=== PATIENT | male | born 1965 | race Caucasian/White ===

== ENCOUNTER 2017-11-11 15:50 | Inpatient (IN) | payer BC ==
[~2017-11-11] VITALS: Ht 182.9 cm; Wt 80.3 kg
[2017-11-11 16:53] LABS: HEMATOCRIT 26.3 % (38.0-50.0); HEMOGLOBIN 9.4 G/DL (12.5-16.6); MCHC 35.7 G/DL (30.0-36.0); MCV 109.1 FL (86-99); PLATELET COUNT 298 K/uL (156-360); RBC DIS.WIDTH-CV 15.2 % (11.8-14.6); RBC DIS.WIDTH-SD 60.1 % (39-53); RED BLOOD COUNT 2.41 M/uL (4.00-5.50); WHITE BLOOD COUNT 11.5 K/uL (4.1-10.2)
[2017-11-11 16:54] LABS: APPEARANCE CLEAR ((CLEAR)); BILIRUBIN MODERATE; BLOOD NEGATIVE; COLOR AMBER ((YELLOW)); GLUCOSE (STRIP) NEGATIVE; KETONES NEGATIVE; LEUKOCYTES NEGATIVE; NITRITE NEGATIVE; PROTEIN (STRIP) 100; SPECIFIC GRAVITY 1.028 (1.000-1.030)
[2017-11-11 16:55] LABS: ICTOTEST ND
[2017-11-11 17:00] LABS: BACTERIA NONE SEEN /HPF; EPITHELIAL CELLS RARE /HPF; HYALINE CASTS 0-5 /LPF; MUCUS 1+ /LPF; RED BLOOD CELLS 0-5 /HPF (0-5)
[2017-11-11 17:03] LABS: CHLORIDE 98 mEq/L (99-109); POTASSIUM 2.7 mEq/L (3.7-5.4); SODIUM 139 mEq/L (136-147)
[2017-11-11 17:05] LABS: GLUCOSE 112 mg/dL (70-99)
[2017-11-11 17:06] LABS: TOTAL PROTEIN 7.5 g/dL (6.4-8.3)
[2017-11-11 17:07] LABS: TOTAL BILIRUBIN 5.3 mg/dL (0.0-1.0)
[2017-11-11 17:09] LABS: ALKALINE PHOSPHATASE 292 IU/L (3-129); CREATININE 0.7 mg/dL (0.6-1.3); GFR ESTIMATE (CALCULATED) > 59 mL/min/ (58.99-99999)
[2017-11-11 17:10] LABS: UREA NITROGEN (BUN) 11 mg/dL (9-23)
[2017-11-11 17:11] LABS: AST (GOT) 99 IU/L (2-34)
[2017-11-11 17:12] LABS: ALT (GPT) 26 IU/L (3-49)
[2017-11-11 18:08] LABS: INTER. NORMALIZED RATIO 1.5
[2017-11-11 18:10] LABS: PTT 27.1 SEC (25-37)
[2017-11-11 23:10] VITALS: BP 138/81
[2017-11-12 04:20] VITALS: BP 118/79
[2017-11-12 06:13] LABS: ABSOLUTE RETICULOCYTE CT. 0.12 M/uL (0.02-0.08); HEMATOCRIT 23.4 % (38.0-50.0); HEMOGLOBIN 8.1 G/DL (12.5-16.6); IMM.RETIC FRACTION 24.8 % (3-19); MCH 38.8 PG (29.0-34.0); MCHC 34.6 G/DL (30.0-36.0); PLATELET COUNT 222 K/uL (156-360); RBC DIS.WIDTH-CV 15.7 % (11.8-14.6); RBC DIS.WIDTH-SD 63.5 % (39-53); RED BLOOD COUNT 2.09 M/uL (4.00-5.50); RETIC HGB EQUIVALENT 42.1 (28-36); RETICULOCYTE COUNT 5.8 % (0.5-1.8); WHITE BLOOD COUNT 8.5 K/uL (4.1-10.2)
[2017-11-12 06:34] LABS: CHLORIDE 104 MEQ/L (99-109); CREATININE 0.6 MG/DL (0.6-1.3); GFR ESTIMATE (CALCULATED) > 59 mL/min/ (58.99-99999); GLUCOSE 102 mg/dL (70-99); IRON 102 MCG/DL (35-150); SODIUM 141 MEQ/L (136-147); TRANSFERRIN (TIBC) 117.9 mg/dL (215-380); UREA NITROGEN (BUN) 11 mg/dL (9-23)
[2017-11-12 06:45] LABS: POTASSIUM 3.7 MEQ/L (3.7-5.4); TRANSFERRIN SATUR. 87 % (20-55)
[2017-11-12 07:58] VITALS: BP 125/81
[2017-11-12 08:53] LABS: FOLIC ACID (FOLATE) 4.9 NG/ML (5.0-22.0)
[2017-11-12 11:32] VITALS: BP 122/79
[2017-11-12 15:27] VITALS: BP 117/76
[2017-11-12 19:52] VITALS: BP 145/86
[2017-11-12 21:32] LABS: STOOL OCCULT BLD 1ST SPECIMEN NEGATIVE
[2017-11-12 23:24] VITALS: BP 143/90
[2017-11-13 04:02] VITALS: BP 121/79
[2017-11-13 05:59] LABS: BASOPHIL (%) 0.4 % (0-1); EOSINOPHIL COUNT 0.1 K/uL (0-0.3); HEMATOCRIT 23.3 % (38.0-50.0); HEMOGLOBIN 7.9 G/DL (12.5-16.6); IMMATURE GRANULOCYTE (%) 0.6 % (0.0-0.7); LYMPHOCYTE (%) 11.1 % (15-42); LYMPHOCYTE COUNT 0.9 K/uL (1.0-2.8); MCH 38.7 PG (29.0-34.0); MCHC 33.9 G/DL (30.0-36.0); MCV 114.2 FL (86-99); MONOCYTE (%) 7.4 % (3-12); MONOCYTE COUNT 0.6 K/uL (0-0.8); NEUTROPHIL (%) 79.5 % (45-76); NEUTROPHIL COUNT 6.5 K/uL (1.8-6.4); PLATELET COUNT 230 K/uL (156-360); RBC DIS.WIDTH-CV 15.8 % (11.8-14.6); RBC DIS.WIDTH-SD 65.9 % (39-53); RED BLOOD COUNT 2.04 M/uL (4.00-5.50); WHITE BLOOD COUNT 8.1 K/uL (4.1-10.2)
[2017-11-13 06:49] LABS: A/G RATIO 1.5 (1.1-1.8); ALKALINE PHOSPHATASE 216 IU/L (3-129); ALT (GPT) 17 IU/L (3-49); AST (GOT) 75 IU/L (2-34); CHLORIDE 104 MEQ/L (99-109); CREATININE 0.5 MG/DL (0.6-1.3); GFR ESTIMATE (CALCULATED) > 59 mL/min/ (58.99-99999); GLUCOSE 96 mg/dL (70-99); POTASSIUM 3.3 MEQ/L (3.7-5.4); SODIUM 139 MEQ/L (136-147); TOTAL BILIRUBIN 5.6 MG/DL (0.0-1.0); UREA NITROGEN (BUN) 10 mg/dL (9-23)
[2017-11-13 06:51] LABS: MAGNESIUM 0.9 mg/dl (1.3-2.7)
[2017-11-13 08:46] VITALS: BP 118/85
[2017-11-13 09:13] LABS: FERRITIN 598 NG/ML (22-322)
[2017-11-13 12:21] LABS: HEPATITIS B SURFACE ANTIBODY Nonreactive
[2017-11-13 12:22] LABS: ANTI-HEPATITIS A VIRUS (IGM) Nonreactive
[2017-11-13 12:24] LABS: ANTI-HEPATITIS B CORE (IGM) Nonreactive
[2017-11-13 12:31] VITALS: BP 125/85
[2017-11-13 12:38] LABS: PHOSPHORUS 2.7 mg/dL (2.5-4.9)
[2017-11-13] MEDS ORDERED: NICOTINE PATCH1 EAC2 TD (15:00)
[2017-11-13] MEDS ORDERED: MAG-OXIDE400 MG PO (15:01)
[2017-11-13] MEDS ORDERED: PANTOPRAZOLE SO40 MG PO (15:01)
[2017-11-13] MEDS ORDERED: FOLIC ACID1 MG PO (15:02)
[2017-11-13] MEDS ORDERED: Thiamine,Vitamin B1 PO (15:02)
[2017-11-13] MEDS ORDERED: THERAGRAN1 TABLET PO (15:02)
[2017-11-13 16:06] VITALS: BP 113/76
[2017-11-13 19:49] VITALS: BP 127/80
[2017-11-13 20:16] LABS: BASOPHIL (%) 0.3 % (0-1); EOSINOPHIL (%) 0.7 % (0-5); EOSINOPHIL COUNT 0.1 K/uL (0-0.3); HEMATOCRIT 24.7 % (38.0-50.0); HEMOGLOBIN 8.2 G/DL (12.5-16.6); IMMATURE GRANULOCYTE (%) 0.6 % (0.0-0.7); LYMPHOCYTE (%) 10.8 % (15-42); MCH 38.3 PG (29.0-34.0); MCHC 33.2 G/DL (30.0-36.0); MCV 115.4 FL (86-99); MONOCYTE (%) 6.8 % (3-12); MONOCYTE COUNT 0.7 K/uL (0-0.8); NEUTROPHIL (%) 80.8 % (45-76); NEUTROPHIL COUNT 7.8 K/uL (1.8-6.4); PLATELET COUNT 238 K/uL (156-360); RBC DIS.WIDTH-CV 16.2 % (11.8-14.6); RBC DIS.WIDTH-SD 68.6 % (39-53); RED BLOOD COUNT 2.14 M/uL (4.00-5.50); WHITE BLOOD COUNT 9.7 K/uL (4.1-10.2)
[2017-11-14 00:35] VITALS: BP 125/76
[2017-11-14 05:10] VITALS: BP 122/78
[2017-11-14 06:21] LABS: BASOPHIL (%) 0.3 % (0-1); EOSINOPHIL (%) 1.7 % (0-5); EOSINOPHIL COUNT 0.2 K/uL (0-0.3); HEMATOCRIT 23.6 % (38.0-50.0); HEMOGLOBIN 7.9 G/DL (12.5-16.6); IMMATURE GRANULOCYTE (%) 0.4 % (0.0-0.7); LYMPHOCYTE (%) 11.9 % (15-42); LYMPHOCYTE COUNT 1.1 K/uL (1.0-2.8); MCH 38.5 PG (29.0-34.0); MCHC 33.5 G/DL (30.0-36.0); MCV 115.1 FL (86-99); MONOCYTE (%) 6.7 % (3-12); MONOCYTE COUNT 0.6 K/uL (0-0.8); PLATELET COUNT 239 K/uL (156-360); RBC DIS.WIDTH-CV 15.8 % (11.8-14.6); RBC DIS.WIDTH-SD 67.1 % (39-53); RED BLOOD COUNT 2.05 M/uL (4.00-5.50); WHITE BLOOD COUNT 8.9 K/uL (4.1-10.2)
[2017-11-14 06:29] LABS: INTER. NORMALIZED RATIO 1.6
[2017-11-14 06:44] LABS: ALBUMIN 2.7 G/DL (3.2-4.8); ALKALINE PHOSPHATASE 193 IU/L (3-129); ALT (GPT) 18 IU/L (3-49); AST (GOT) 75 IU/L (2-34); CHLORIDE 104 MEQ/L (99-109); CREATININE 0.5 MG/DL (0.6-1.3); GFR ESTIMATE (CALCULATED) > 59 mL/min/ (58.99-99999); GLUCOSE 98 mg/dL (70-99); MAGNESIUM 1.4 mg/dl (1.3-2.7); POTASSIUM 3.5 MEQ/L (3.7-5.4); SODIUM 138 MEQ/L (136-147); TOTAL PROTEIN 4.9 G/DL (6.4-8.3); UREA NITROGEN (BUN) 10 mg/dL (9-23)
[2017-11-14 11:32] VITALS: BP 118/82
[2017-11-14 12:07] LABS: HEPATITIS B SURFACE ANTIGEN Nonreactive
[2017-11-14 12:08] LABS: HEPATITIS C ANTIBODY Nonreactive
[2017-11-14] MEDS ORDERED: CHLORDIAZEPOXID25 MG PO (12:16)
[2017-11-14] MEDS ORDERED: ALDACTONE25 MG PO (12:25)
[2017-11-15 12:33] LABS: MITOCHONDRIAL (M2) ANTIBODIES+ <=20.0 U (<=20.0)
[2017-11-16 14:28] LABS: ALBUMIN 2.68 G/DL (3.6-4.9); ALPHA-1 GLOBULIN 0.34 G/DL (0.15-0.40); ALPHA-2 GLOBULIN 0.66 G/DL (0.45-0.85); BETA-GLOBULIN 0.64 G/DL (0.65-1.15); GAMMA-GLOBULIN 0.69 G/DL (0.60-1.35)
== END 2017-11-14 15:36 | disposition home or self-care (01) | DRG 433 ==
LOC: EME 15:50 → ENRESERV 20:32 → 3EAST 21:17 → EDOF 21:17 → CANRESERV 21:19 → ENRESERV 21:19 → 3EAST 23:17
PROVIDERS: Hospitalist; Physician Assistant; Specialist
DX: K70.40 Alcoholic hepatic failure without coma (principal); I10 Essential (primary) hypertension; R79.89 Other specified abnormal findings of blood chemistry; E87.6 Hypokalemia; R18.8 Other ascites; M79.89 Other specified soft tissue disorders; F17.210 Nicotine dependence, cigarettes, uncomplicated; E78.5 Hyperlipidemia, unspecified; K76.0 Fatty (change of) liver, not elsewhere classified; R63.4 Abnormal weight loss; R63.0 Anorexia; D53.9 Nutritional anemia, unspecified; F10.239 Alcohol dependence with withdrawal, unspecified; E83.42 Hypomagnesemia; D18.03 Hemangioma of intra-abdominal structures; I08.2 Rheumatic disorders of both aortic and tricuspid valves
CPT/HCPCS: 70140; 71046; 74177; 74183; 80048; 80053; 81003; 81256 90; 82140; 82272; 82390; 82607; 82728; 82746; 83540; 83605; 83735; 84100; 84165; 84466; 85025; 85025 91; 85027; 85046; 85610; 85730; 86256 90; 86705; 86706; 86709; 86803; 87040; 87340; 93005; 93306; 93970; 99281; 99285; G0480; J1644; J2060; J3475; J7030; J7040